=== PATIENT | female | born 1945 | race Caucasian/White ===

== ENCOUNTER 2019-06-25 21:17 | Emergency (ER) | payer OTHER ==
[~2019-06-25] VITALS: Ht 160 cm; Wt 63.5 kg
[2019-06-25] MEDS ORDERED: JANUMET 50-5001 EACH (21:38)
[2019-06-25] MEDS ORDERED: TELMISARTAN80 MG (21:38)
[2019-06-25] MEDS ORDERED: NORVASC10 MG (21:39)
[2019-06-25] MEDS ORDERED: NAPROXEN500 M1 PO (22:46)
[2019-06-25] MEDS ORDERED: valium PO (22:46)
[2019-06-25] MEDS ORDERED: NEURONTIN300 MG PO (22:46)
== END 2019-06-25 23:51 | disposition home or self-care (01) ==
LOC: ER 21:17
DX: M54.41 Lumbago with sciatica, right side (principal)